=== PATIENT | female | born 1935 | race Caucasian/White ===

== ENCOUNTER → 2016-06-01 | Outpatient (CLI) | payer OTHER ==
--- NOTE | 2016-06-01 12:14 | MA ---
Screening Digital Mammogram With iCAD Analysis Clinical Indications: Routine screening. A sister and a niece were diagnosed with breast cancer in ei 30s. The patient has had a benign left breast biopsy. Technique: Standard cephalocaudal and mediolateral oblique projections are obtained. The examination is processed by the iCAD computer-aided detection system. Comparison: May 2015, April 2014, April 2013, April 2012, April 2011, and May 12. Breast density: Type C; Heterogeneously dense. Findings: CAD was reviewed. There are no masses, suspicious calcifications or other signs of malignan cy. There has been no significant change in the appearance of either breast. Vascular calcifications are noted. Impression: Negative mammogram. BI-RADS 1. Recommendation: Routine screening in one year, as long as physical examination is benign, in this pat ient with heterogeneously dense breast parenchyma. [facility] will [facility] result letter to the patient. Dense breast parenchyma diminishes mammographic sensitivity. Negative mammography should not preclude additional workup of a clinically suspicious finding. The patient's information is entered into a reminder system with a target due date for her next mammo gram.
== END ==
LOC: BMCIMAGING 09:42
DX: Z12.31 Encounter for screening mammogram for malignant neoplasm of breast (principal); Z80.3 Family history of malignant neoplasm of breast
CPT/HCPCS: G0202

== ENCOUNTER → 2017-06-07 | Outpatient (CLI) | payer OTHER | LOC: BMCIMAGING 08:44 | PROVIDERS: ATTEND Internal Medicine | DX: Z12.31 Encounter for screening mammogram for malignant neoplasm of breast (principal) ==

== ENCOUNTER → 2018-06-09 | Outpatient (CLI) | payer OTHER | LOC: BMCIMAGING 09:23 | PROVIDERS: ATTEND Internal Medicine | DX: Z12.31 Encounter for screening mammogram for malignant neoplasm of breast (principal); Z80.3 Family history of malignant neoplasm of breast ==